=== PATIENT | female | born 1980 | race Caucasian/White ===

== ENCOUNTER 2018-09-14 20:25 | Emergency (ER) | payer OTHER ==
[~2018-09-14] VITALS: Ht 157.5 cm; Wt 61.2 kg
[~2018-09-14 20:25] MED LIST: FLEXERIL PO; NUVARING VAGIN1 EACH; PERCOCET 5-3251 EACH PO; SEPTRA DS TABL1 EACH; TIROSINT75 MCG; ZOFRAN4 MG PO
[2018-09-14] MEDS ORDERED: NORCO 5-325 TA1 EACH PO (22:24)
[2018-09-14] MEDS ORDERED: IBUPROFEN 600600 M1 PO (22:24)
[2018-09-14 22:41] VITALS: BP 140/70
== END 2018-09-14 22:42 | disposition home or self-care (01) ==
LOC: M.ERS 20:25
DX: S29.011A Strain of muscle and tendon of front wall of thorax, initial encounter (principal); E03.9 Hypothyroidism, unspecified; X58.XXXA Exposure to other specified factors, initial encounter; Y92.89 Other specified places as the place of occurrence of the external cause; Y93.89 Activity, other specified; Y99.8 Other external cause status